=== PATIENT | male | born 1985 | race African-American/Black ===

== ENCOUNTER 2016-09-19 08:29 | Emergency (ER) | payer SELFPAY ==
[~2016-09-19] VITALS: Ht 190.5 cm; Wt 102.1 kg
[~2016-09-19 08:29] MED LIST: BACTRIM DS TAB1 EAC1 ORAL; COLACE100 MG ORAL; IBUPROFEN600 MG ORAL; METRONIDAZOLE500 MG ORAL; NKM; PERCOCET 5-3251 EACH ORAL; PHENERGAN6.25 MG/5 ORAL; PROMETHAZINE-C118 M1 ORAL; VALIUM10 MG ORAL
[2016-09-19 08:47] VITALS: BP 139/66
--- NOTE | 2016-09-19 08:59 | Emergency Room Report ---
History of Present Illness General Chief Complaint: General Complaint Source: Patient Present Illness HPI Patient presents with several problems. The main one is concerned about his swelling and pain in his right index finger. He was bowling Thursday in the next day he had swelling of his index finger. When some he grabbed his his finger he has increased pain. No redness, fever. He is able to bend the finger without increased pain, but the swelling prevents FROM. He reports pain is 10/10. He also reported to RN that he has had epigastric pain for 1 month. Some burning. Not radiate. No vomiting or diarrhea. No meds taken. In addition he's been having a cough is keeping him awake at night. He smokes cannabis. In addition he has jock itch. 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 Nursing Documentation: PMH: Agreed, PSxH: Agreed Nursing Documentation-PMH Past Medical History: No Stated History Review of Systems All Other Systems: negative except mentioned in HPI Physical Exam Vital Signs Date Time Temp Pulse Resp B/P Pulse Ox O2 Delivery O2 Flow Rate FiO2 09/19/16 08:32 97.9 94 16 139/66 99 Room Air Sp02 EP Interpretation: reviewed, normal General Appearance: well appearing, no apparent distress, GCS 15 Head: normocephalic Eyes: bilateral eye PERRL, bilateral eye normal inspection ENT: moist mucus membranes Neck: supple Respiratory: lungs clear, normal breath sounds Cardiovascular #1: regular rate, rhythm Cardiovascular #2: 2+ radial (R) - good cap fill of finger Gastrointestinal: normal inspection, normal bowel sounds, non tender, no mass, non-distended, scaphoid Musculoskeletal: back normal, gait/station normal, normal range of motion, swelling - R index finger, no erythema, PROM not cause pain Neurologic: alert, oriented x3, motor strength/tone normal, sensory intact Skin: warm/dry, other - t cruis R Medical Decision Making Diagnostic Impression: Primary Impression: Right index finger pain Additional Impressions: Chronic bronchitis Qualified Codes: J41.0 - Simple chronic bronchitis Tinea cruris Epigastric pain ER Course Patient with several problems. Finger is main concern: tendonitis, sprain, early infection. Based on mechanism - doubt fx. Xrays not indicated. Finger needs immobilization and elevation. Will also cover with antibiotics and give analgesia. Will also treat other problems (see dx's). Splint and sling placed by tech. Position excellent (modified by me). Neurovasc normal checked by me. Patient stable for outpatient observation and treatment. Last Vital Signs Date Time Temp Pulse Resp B/P Pulse Ox O2 Delivery O2 Flow Rate FiO2 09/19/16 09:27 97.9 16 139/66 99 Room Air 09/19/16 08:32 94 Status: improved Disposition: HOME, SELF-CARE Condition: Improved Scripts Guaifenesin/Codeine Phos* (ROBITUSSIN AC*) 118 Ml Liquid 1 TSP ORAL QHS Y for For Cough, #60 ML 0 Refills Prov: Baldemar Amato M.D. 09/19/16 Ibuprofen* (MOTRIN*) 600 Mg Tablet 600 MG ORAL Q6H Y for For Pain, #20 TAB Prov: Baldemar Amato M.D. 09/19/16 Trimethoprim/Sulfamethoxazole 160/800* (BACTRIM DS TABLET*) 1 Each Tablet 1 TAB ORAL Q12H, #14 TAB 0 Refills Prov: Baldemar Amato M.D. 09/19/16 Terbinafine Hcl* (LAMISIL*) 250 Mg Tablet 250 MG PO DAILY, #14 TAB Prov: Baldemar Amato M.D. 09/19/16 Baldemar Amato M.D. Sep 19, 2016 08:59
[2016-09-19] MEDS ORDERED: BACTRIM DS TAB1 EAC1 ORAL (09:06)
[2016-09-19] MEDS ORDERED: IBUPROFEN600 MG ORAL (09:06)
[2016-09-19] MEDS ORDERED: GUAIFENESIN-CO118 M1 ORAL (09:06)
[2016-09-19] MEDS ORDERED: TERBINAFINE HC250 MG PO (09:06)
[2016-09-19] MEDS ORDERED: Tetanus/Diptheria/Pertussis Vaccine 0.5ml Syr IM ONE (09:15)
[2016-09-19 09:27] VITALS: BP 139/66
== END 2016-09-19 09:27 | disposition home or self-care (01) ==
LOC: EMR 08:45
DX: M79.644 Pain in right finger(s) (principal); B35.6 Tinea cruris; R10.13 Epigastric pain; J42 Unspecified chronic bronchitis; Z23 Encounter for immunization
CPT/HCPCS: 90471; 90715; 96372; 99283

== ENCOUNTER 2019-03-30 02:52 | Emergency (ER) | payer SELFPAY ==
[~2019-03-30] VITALS: Ht 190.5 cm; Wt 108.9 kg
[~2019-03-30 02:52] MED LIST changes: +GUAIFENESIN-CO118 M1 ORAL; +TERBINAFINE HC250 MG PO
--- NOTE | 2019-03-30 03:11 | NUR ---
ED Nurse Note: pt presents to ED c/o a hemmorhoid. pt was seen here 2 days ago and has been doing what he was told to do when he was last seen here but it has not helped. pt states he thinks the hemmorrhoid has grown and that it needs to be drained. pt has taken naproxen and tylenol for the pain but that nothing has helped.
[2019-03-30 03:13] VITALS: BP 156/100
--- NOTE | 2019-03-30 04:10 | Emergency Room Report ---
History of Present Illness General Chief Complaint: General Complaint Source: Patient Present Illness HPI Patient returns with painful hemorrhoid. He was seen 2 nights ago. He is having trouble sitting. The pain is rated 10/10 and aching and pressure. He has trouble moving his bowels. He denies any fevers or chills. There is no abdominal pain. The patient had a hemorrhoid in the past which was lanced and drained. He feels this needs to be done at this time. No nausea, vomiting, diarrhea, dysuria, abdominal pain, shortness of breath, joint pain, rashes, depression, anxiety, visual changes, dizziness, headache. 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 Nursing Documentation: PMH: Agreed; PSxH: Agreed Nursing Documentation-PM Past Medical History: No Stated History Review of Systems All Other Systems: negative except mentioned in HPI Physical Exam Vital Signs Date Time Temp Pulse Resp B/P (MAP) Pulse Ox O2 Delivery O2 Flow Rate FiO2 03/30/19 03:02 98.1 97 20 156/100 (118) 99 Room Air Sp02 EP Interpretation: reviewed, normal General Appearance: well appearing, no apparent distress, GCS 15, non-toxic Head: normocephalic Eyes: bilateral eye normal inspection, bilateral eye PERRL ENT: moist mucus membranes Respiratory: normal inspection Cardiovascular #1: regular rate, rhythm Cardiovascular #2: 2+ radial (R) Gastrointestinal: normal inspection, normal bowel sounds, non tender, scaphoid Rectal: hemorrhoids - Large and painful and fluctuant without surrounding erythema Genitourinary: no CVA tenderness Musculoskeletal: gait/station normal Neurologic: alert, grossly normal Psychiatric: mood/affect normal Skin: no rash, warm/dry Procedures Incision and Drainage Incision and Drainage : Consent: Verbal Site: hemorrhoid Blade Size: 11 I & D Procedure: betadine prep, sterile drapes applied, sterile dressing applied, gauze wick placed Wound Location: other - Hemorrhoid Wound's Depth, Shape: superficial Wound Length (cm): 1 Wound Explored: contaminated Irrigated w/ Saline (ccs): 20 Anesthesia: Lidocaine w/ Epi Volume Anesthetic (ccs): 2 Patient Tolerated: Well Complications: None Progress After Betadine prep and anesthesia the hemorrhoid was aspirated with an 18- gauge needle. 12 mils of pus were aspirated. After this the hemorrhoid was incised. Further drainage occurred. The hemorrhoid was irrigated with saline. After this the hemorrhoid was packed with gauze. Patient tolerated the procedure well with relief. Medical Decision Making Diagnostic Impression: Primary Impression: Hemorrhoid infected ER Course Patient presents with painful hemorrhoid. Differential includes thrombosed hemorrhoid, hemorrhoid amongst others. Incision and drainage indicated. Aspiration of pus. See procedure note. Patient is nontoxic at this time. No systemic signs of infection. Bactrim given. Patient improved. Discussed low threshold for returning for possible IV antibiotics. Advised to return for drain removal. Patient stable for outpatient observation and treatment. Last Vital Signs Date Time Temp Pulse Resp B/P (MAP) Pulse Ox O2 Delivery O2 Flow Rate FiO2 03/30/19 05:51 97.9 75 19 145/89 99 Room Air Status: improved Disposition: HOME, SELF-CARE Condition: Improved Scripts Lactulose (LACTULOSE*) 20 Gm/30 Ml Solution 30 ML ORAL BID, #240 ML 0 Refills Prov: Baldemar Amato MD 03/30/19 Trimethoprim/Sulfamethoxazole 160/800* (BACTRIM DS TABLET*) 1 Each Tablet 1 TAB ORAL TWICE A DAY, #14 TAB Prov: Baldemar Amato MD 03/30/19 Referrals: NOT CHOSEN LATOYA/,REFERRING (PCP) Baldemar Amato MD Mar 30, 2019 04:10
[2019-03-30] MEDS ORDERED: Lidocaine 1% 10mg/ml/Epi 0.005mg/ml 30ml vial INJ ONE (04:15)
[2019-03-30] MEDS ORDERED: Lidocaine HCl 2% Jelly 6ml Tube TOPIC ONE (04:15)
[2019-03-30] MEDS ORDERED: Bactrim-DS 1 tab ORAL ONE (05:30)
[2019-03-30] MEDS ORDERED: LACTULOSE20 GM/301 ORAL (05:35)
[2019-03-30] MEDS ORDERED: BACTRIM DS TAB1 EAC1 ORAL (05:35)
[2019-03-30 05:51] VITALS: BP 145/89
--- NOTE | 2019-03-30 05:51 | NUR ---
ED Nurse Note: Pt cleared by ERMD for discharge. DC instructions/prescription was given and explained to pt and verbalized understanding of teachings. All medical deviecs such as ID band removed. Pt is AAO x4, ambulatory and left with all personal belongings.
== END 2019-03-30 05:50 | disposition home or self-care (01) ==
LOC: EMR 04:07
DX: K64.4 Residual hemorrhoidal skin tags (principal)
CPT/HCPCS: 99283